=== PATIENT | female | born 1990 | race African-American/Black ===

== ENCOUNTER 2019-01-18 00:57 | Emergency (ER) | payer SELFPAY | END 2019-01-18 01:15 | disposition left against medical advice (07) | LOC: ERS 00:57 | DX: R51 Headache (principal); R10.9 Unspecified abdominal pain; M54.6 Pain in thoracic spine; R11.2 Nausea with vomiting, unspecified; F41.9 Anxiety disorder, unspecified; Y04.0XXA Assault by unarmed brawl or fight, initial encounter | CPT/HCPCS: 99283 ==